=== PATIENT | male | born 1985 | race Caucasian/White ===

== ENCOUNTER 2017-06-17 22:41 | Emergency (ER) | payer OTHER ==
[2017-06-17 23:14] VITALS: TEMP 97.1
[2017-06-17 23:15] LABS: Glucose,Whole Blood 109 mg/dL (75-99)
--- NOTE | 2017-06-17 23:15 | ED ---
Syncope HPI - General Chief Complaint: Syncope Stated Complaint: [facility],SYNCOPE Time Seen by Provider: 06/17/17 23:08 Source: patient, police Mode of arrival: EMS Limitations: no limitations - History of Present Illness Initial Comments: patient presents with a chief complaint of syncope. The patient arrives to the ER police custody. Patient states that he was driving home, was pulled over. He was pulled out of the car by police personnel and questioned about some of the things inside of his car. At that time, the patient states he became lightheaded and passed out. He was lowered to the ground by police aide and did not sustain any injuries. The patient states that this happens to him sometimes when he goes long periods without eating. The patient states the last time he ate was yesterday morning. At this time, the patient states that he does not have any symptoms. - Related Data Home Medications Medication Instructions Recorded Confirmed No Known Home Medications [No 06/17/17 06/17/17 Known Home Medications] Allergies Allergy/AdvReac Type Severity Reaction Status Date / Time No Known Allergies Allergy Verified 06/17/17 23:18 Review of Systems ROS Statement: Those systems with pertinent positive or pertinent negative responses have been documented in the HPI. ROS Other: All systems not noted in ROS Statement are negative. Constitutional: Denies: fever Eyes: Denies: vision change ENT: Denies: throat pain Respiratory: Denies: dyspnea Cardiovascular: Denies: chest pain, palpitations Endocrine: Denies: fatigue Gastrointestinal: Denies: abdominal pain, nausea, vomiting Skin: Denies: rash Neurological: Denies: headache Past Medical History Past Medical History: No Reported History History of Any Multi-Drug Resistant Organisms: None Reported Past Surgical History: No Surgical Hx Reported Past Psychological History: No Psychological Hx Reported Smoking Status: Current every day smoker Past Alcohol Use History: Occasional Past Drug Use History: None Reported General Exam Limitations: no limitations General appearance: alert, in no apparent distress Head exam: Present: atraumatic, normocephalic Eye exam: Present: normal appearance ENT exam: Present: normal exam Respiratory exam: Present: normal lung sounds bilaterally Cardiovascular Exam: Present: regular rate, normal rhythm GI/Abdominal exam: Present: soft. Absent: distended, tenderness Neurological exam: Present: alert, oriented X3, CN II-XII intact, normal gait Psychiatric exam: Present: normal affect, normal mood Skin exam: Present: warm, dry, intact Course Vital Signs 06/17/17 06/17/17 22:54 23:19 Temperature 97.1 F L Pulse Rate 80 70 Respiratory 18 16 Rate Blood Pressure 113/75 119/68 O2 Sat by Pulse 97 99 Oximetry Medical Decision Making - Medical Decision Making patient presents with a chief complaint of a syncopal episode in police custody. The patient on initial evaluation appears well. He says that he has not eaten since history morning. He has a glucose shows 109, EKG performed at 2313 shows normal sinus rhythm with sinus arrhythmia. EKG is otherwise nonspecific. Currently patient has no symptoms all day. He'll be given something to drink and something to eat and will be discharged into police custody. - Lab Data Lab Results 06/17/17 Range/Units 23:13 POC Glucose (mg/dL) 109 H (75-99) mg/dL POC Glu Motion Picture Director ID Janine Barrios Disposition Clinical Impression: Syncope, Hypoglycemia Disposition: HOME SELF-CARE Condition: Good Instructions: Syncope (ED), Non-diabetic Hypoglycemia (ED) Referrals: None,Stated [Primary Care Provider] - 1-2 days
[2017-06-17 23:20] VITALS: BP 119/68; PULSE 70; RESP 16
== END 2017-06-17 23:39 | disposition home or self-care (01) ==
LOC: EC 22:41
DX: E16.2 Hypoglycemia, unspecified (principal); R55 Syncope and collapse; F17.200 Nicotine dependence, unspecified, uncomplicated
CPT/HCPCS: 36415; 93005; 99284

== ENCOUNTER 2018-02-10 19:36 | Emergency (ER) | payer OTHER ==
[2018-02-10 20:01] VITALS: BP 128/76; RESP 16; TEMP 99
--- NOTE | 2018-02-10 21:06 | XR ---
EXAMINATION TYPE: XR hand limited RT DATE OF EXAM: 02/10/2018 COMPARISON: NONE HISTORY: Pain. Puncture wound. TECHNIQUE: 2 views I see no fracture nor dislocation. Joint spaces are normal. There is no sign of a foreign body. IMPRESSION: Negative right hand exam.
[2018-02-10 21:52] VITALS: PULSE 60
--- NOTE | 2018-02-10 22:05 | ED ---
Upper Extremity HPI - General Chief Complaint: Extremity Injury, Upper Stated Complaint: hand injury Time Seen by Provider: 02/10/18 20:19 Source: patient Mode of arrival: ambulatory Limitations: no limitations - History of Present Illness Initial Comments: 32-year-old male with no past medical history presents today for chief complaint of I drilled into my right hand. Pt stated that around 5:00pm this evening he was replacing hinges on a door in his house when he missed the head of the screw drilling in to the thenar eminence of the right thumb. Pt stated he didnt know how deep the puncture went. Pt has full range of motion in all five digits of the right hand and at the wrist. He cleaned it out then continued with his day, he then figured he come to the ER because his last puncture wound healed "weird" so he didnt want that to happen again. He stated he has had multiple tetanus in the past 5-10 years. Patient denies numbness, tingling, paresthesias, loss sensation, muscle weakness of the hands and digits bilaterally. In addition, patient denies any recent fever, chills, shortness of breath, chest pain, back pain, abdominal pain, nausea or vomiting, numbness or tingling, dysuria or hematuria, constipation or diarrhea, headaches or visual changes, or any other complaints. - Related Data Previous Rx's Medication Instructions Recorded Cephalexin [Keflex] 500 mg PO Q12HR 5 Days #10 cap 02/10/18 Allergies Allergy/AdvReac Type Severity Reaction Status Date / Time No Known Allergies Allergy Verified 02/10/18 20:28 Review of Systems ROS Statement: Those systems with pertinent positive or pertinent negative responses have been documented in the HPI. ROS Other: All systems not noted in ROS Statement are negative. Constitutional: Denies: fever, chills ENT: Denies: ear pain, throat pain Respiratory: Denies: cough, dyspnea Cardiovascular: Denies: chest pain, palpitations Gastrointestinal: Denies: abdominal pain, nausea, vomiting Genitourinary: Denies: urgency, dysuria Musculoskeletal: Reports: as per HPI, myalgia. Denies: joint swelling, arthralgia Skin: Reports: as per HPI Neurological: Denies: headache, weakness, numbness, paresthesias, confusion, abnormal gait Past Medical History Past Medical History: No Reported History History of Any Multi-Drug Resistant Organisms: None Reported Past Surgical History: No Surgical Hx Reported Past Psychological History: No Psychological Hx Reported Smoking Status: Current every day smoker Past Alcohol Use History: Occasional Past Drug Use History: None Reported General Exam - General Exam Comments Initial Comments: General: The patient is awake and alert, in no distress, and does not appear acutely ill. Eye: Pupils are equal, round and reactive to light, extra-ocular movements are intact. No nystagmus. There is normal conjunctiva bilaterally. No signs of icterus. Ears, nose, mouth and throat: There are moist mucous membranes and no oral lesions. Cardiovascular: There is a regular rate and rhythm. No murmur, rub or gallop is appreciated. Respiratory: Lungs are clear to auscultation, respirations are non-labored, breath sounds are equal. No wheezes, stridor, rales, or rhonchi. Musculoskeletal: Full range motion with 5/5 strength of the MCP PIP and DIP joints of all 5 digits of the hands bilaterally equally . Patient had full range of motion at the wrist bilaterally with bilateral 5/5 strength. Patient noted tenderness to palpation over the area of puncture. Upon exploration no evidence of exposure of underlying tissues however views limited due to size of wound. Sensation intact of the hands b/l. Radial ulnar pulses equal bilaterally 2+. Capillary refill is seconds. Finger opposition intact. Neurological: A&O x 3. CN II-XII intact, There are no obvious motor or sensory deficits. Coordination appears grossly intact. Speech is normal. Skin: Skin is warm and dry and no rashes or lesions are noted. Psychiatric: Cooperative, appropriate mood & affect, normal judgment. Limitations: no limitations Course Vital Signs 02/10/18 19:59 Temperature 99.0 F Pulse Rate 60 Respiratory 16 Rate Blood Pressure 128/76 O2 Sat by Pulse 99 Oximetry Medical Decision Making - Medical Decision Making XR obtained, no radioopaque FB, no evidence of fracture. Puncture soaked in iodine/sterile water mixtures. Cleansed, bacitracin applied and covered with loose fitting sterile bandage. At this time given physical examination findings low suspicion for tendonous injury however this is not excluded. Pt was instructed to f/u with orthopedic surgery in 1-2 days and PCP for wound check. pt was given keflex 500mg BID x5 days for infection ppx. Pt agreed with plan d/ c in stable condition after case discussed in detail with Dr. Cardona. Disposition Clinical Impression: Puncture wound of right hand Disposition: HOME SELF-CARE Condition: Good Instructions: Puncture Wound (ED) Additional Instructions: Please use medication as discussed. Please follow-up with family doctor in the next 2 days. Please follow-up with orthopedic surgery in 1 week if symptoms persist. Please return to emergency room if the symptoms increase or worsen or for any other concerns. Prescriptions: Cephalexin [Keflex] 500 mg PO Q12HR 5 Days #10 cap Is patient prescribed a controlled substance at d/c from ED?: No Referrals: River Treviño DO [Doctor of Osteopathic Medicine] - 1-2 days None,Stated [Primary Care Provider] - 1-2 days Time of Disposition: 22:05
== END 2018-02-10 22:15 | disposition home or self-care (01) ==
LOC: EC 19:36
DX: S61.431A Puncture wound without foreign body of right hand, initial encounter (principal); F17.200 Nicotine dependence, unspecified, uncomplicated; W29.8XXA Contact with other powered hand tools and household machinery, initial encounter; Y93.89 Activity, other specified
CPT/HCPCS: 99283